=== PATIENT | male | born 1980 | race Caucasian/White ===

== ENCOUNTER 2017-08-22 08:30 | Emergency (ER) | payer OTHER ==
[~2017-08-22] VITALS: Ht 180.3 cm; Wt 108.9 kg
[2017-08-22 08:47] LABS: ABSOLUTE NEUTROPHILS 3.8 thou/uL (1.4-8.2); BASOPHILS 0.8 % (0.0-2.0); HEMATOCRIT 43.5 % (42.0-52.0); HEMOGLOBIN 14.7 gm/dL (14.0-18.0); LYMPHOCYTES 39.1 % (24.0-44.0); MCH 29.2 pg (26.0-34.0); MCHC 33.9 g/dL (28.0-37.0); MCV 86.4 fL (80.0-100.0); PLATELET COUNT 295 thou/uL (150-400); POLYS 51.1 % (36.0-66.0); RBC 5.04 mil/uL (4.50-6.00); RDW 12.3 % (10.5-14.5); WBC 7.4 thou/uL (4.0-11.0)
[2017-08-22 08:49] LABS: MANUAL DIFF NO
[2017-08-22 08:54] LABS: CALCIUM 8.9 mg/dL (8.5-10.1); CREATININE 1.2 mg/dL (0.7-1.3); POTASSIUM 4.1 mmol/L (3.5-5.1)
[2017-08-22 09:00] LABS: ALBUMIN 4.1 g/dL (3.4-5.0); TOTAL BILIRUBIN 0.5 mg/dL (<0.1-1.0); TOTAL PROTEIN 7.1 g/dL (6.4-8.2)
[2017-08-22 10:40] LABS: URINE BILIRUBIN NEGATIVE (Negative); URINE BLOOD 3+ (Negative); URINE COLOR YELLOW; URINE GLUCOSE-RANDOM* NEGATIVE (Negative); URINE KETONES NEGATIVE (Negative); URINE LEUKOCYTES-REFLEX NEGATIVE (Negative); URINE PROTEIN (DIPSTICK) NEGATIVE (Negative); URINE SPECIFIC GRAVITY 1.015 (1.003-1.035); URINE UROBILINOGEN 0.2 E.U./dl (0.2-1.0)
[2017-08-22] MEDS ORDERED: NORCO 7.5-3251 EACH PO (10:42)
[2017-08-22] MEDS ORDERED: IBUPROFEN 600600 M1 PO (10:42)
[2017-08-22] MEDS ORDERED: ZOFRAN ODT4 MG PO (10:42)
[2017-08-22] MEDS ORDERED: FLOMAX0.4 MG PO (10:42)
[2017-08-22] MEDS ORDERED: SENNA-DOCUSATE1 EACH PO (10:42)
[2017-08-22 10:55] LABS: CASTS None Seen /LPF (None Seen); CRYSTALS None Seen /LPF (None Seen); SQUAMOUS None Seen /LPF (0-3); URINE WBC-REFLEX 0-5 Rare /HPF (0-5)
[2017-08-22 11:15] VITALS: BP 147/85
== END 2017-08-22 11:15 | disposition home or self-care (01) ==
LOC: ER 08:30
PROVIDERS: Emergency Medicine
DX: N20.1 Calculus of ureter (principal)